=== PATIENT | female | born 1980 | race Caucasian/White ===

== ENCOUNTER → 2020-09-06 | Outpatient (CLI) | payer OTHER | LOC: MAMO 07-12 13:30 → US 07-12 14:00 → MAMO 08-09 13:30 → US 08-09 13:30 → MAMO 13:30 → US 14:00 → MAMO 14:19 | DX: N63.11 Unspecified lump in the right breast, upper outer quadrant (principal); N60.11 Diffuse cystic mastopathy of right breast | CPT/HCPCS: 76641-LT; 76641-RT; 77066; G0279 ==